=== PATIENT | female | born 1980 | race Two or more races ===

== ENCOUNTER 2018-11-24 08:19 | Emergency (ER) | payer OTHER ==
--- NOTE | 2018-11-24 08:55 | EDPHY ---
H & P Stated Complaint: RIGHT LOWER DENTAL PAIN STARTED WEDNESDAY, SEEN AT DENTIST ON WEDNESDAY Time Seen by Provider: 11/24/18 08:33 HPI/ROS: 38 yo F presents c/o severe pain in right lower molar, #30. The pain began on Wednesday night and she was seen on Wednesday, started on antibiotics and scheduled for a root canal next week. She continues to have severe pain, no drainage around tooth, no fever or chills. She contacted the pharmacy technician assistant again today who advised her to change antibioitcs to Clindamycin from penicillin. Review of systems As per HPI General no fever no chills no weakness HEENT no eye pain no eye discharge. No eye redness, no sore throat Respiratory no cough, no shortness of breath Cardiac no chest pain, no peripheral edema GI no abdominal pain, no diarrhea, no constipation, no nausea, no vomiting no flank pain, no hematuria, no dysuria Musculoskeletal no myalgias, no joint pain Heme no easy bruising, no easy bleeding Endo no polyuria, no polydipsia Skin no rashes, no pruritus Neuro no syncope, no dizziness, no headaches Psych is no suicidal ideation, no homicidal ideation Source: Patient Exam Limitations: No limitations - Personal History LMP (Females 10-55): Irregular Current Tetanus/Diphtheria Vaccine: Yes - Medical/Surgical History Hx Asthma: No Hx Chronic Respiratory Disease: No Hx Diabetes: No Hx Cardiac Disease: No Hx Renal Disease: No Hx Cirrhosis: No Hx Alcoholism: No Hx HIV/AIDS: No Hx Splenectomy or Spleen Trauma: No Other PMH: DENIES - Family History Significant Family History: No pertinent family hx - Social History Smoking Status: Never smoked Alcohol Use: None Drug Use: None - Physical Exam Exam: 38 yo F alert and oriented with severe dental pain, afebrile hypertensive and tachycardic at,nc no gross facial asymmetry op no tongue elevation no gum swelling or purulent dishcarge tooth #30, right lower first molar, tender to tap right mandibular tenderness, no gross swelling or areas of fluctuance neck supple, no adenopathy lungs cta bilat heart rapid rr ext no cce Constitutional: Initial Vital Signs Temperature (C) 36.5 C 11/24/18 08:25 Heart Rate 100 11/24/18 08:25 Respiratory Rate 18 11/24/18 08:25 Blood Pressure 170/102 H 11/24/18 08:25 O2 Sat (%) 97 11/24/18 08:25 O2 Delivery Mode Room Air Allergies/Adverse Reactions: No Known Allergies Allergy (Unverified 11/24/18 08:24) Home Medications: Medication Instructions Recorded PENICILLIN V POTASSIUM 11/24/18 Percocet 5/325 (*) 11/24/18 Medical Decision Making ED Course/Re-evaluation: pt seen and evaluated for intractable dental pain referred here by her pharmacy technician assistant IV established, given iv fluids normal saline Clindamycin 900 mg ivpb given Morphine, ondansetron given initially with slight pain relief next given toradol 30 mg ivp , increased pain relief and the hydromorphone 1 mg with complete pain relief Pt now tolerating po Imp Periapical abscess Plan See pharmacy technician assistant this afternoon for possible abscess drainage or root canal. Return as needed Pt has clindamycin and percocet rx already. Home with ondansetron. Differential Diagnosis: Differential diagnosis considered but not limited to: Periapical abscess, other dental abscess, gum abscess - Data Points Medications Given: Discontinued Medications Hydromorphone HCl (Dilaudid) 1 mg IVP EDNOW ONE Stop: 11/24/18 09:50 Last Admin: 11/24/18 09:56 Dose: 1 mg Sodium Chloride (Ns) 1,000 mls @ 0 mls/hr IV ONCE ONE PRN Reason: Wide Open Stop: 11/24/18 09:01 Last Admin: 11/24/18 09:05 Dose: 1,000 mls Clindamycin Phosphate/Dextrose (Cleocin 900 Mg (Premix)) 50 mls @ 100 mls/hr IV EDNOW ONE PRN Reason: Protocol Stop: 11/24/18 09:30 Last Admin: 11/24/18 09:12 Dose: 50 mls Ketorolac Tromethamine (Toradol) 30 mg IVP EDNOW ONE Stop: 11/24/18 09:18 Last Admin: 11/24/18 09:23 Dose: 30 mg Morphine Sulfate (Morphine) 4 mg IVP EDNOW ONE Stop: 11/24/18 09:01 Last Admin: 11/24/18 09:07 Dose: 4 mg Ondansetron HCl (Zofran) 4 mg IVP EDNOW ONE Stop: 11/24/18 09:01 Last Admin: 11/24/18 09:06 Dose: 4 mg Departure - Departure Disposition: Home, Routine, Self-Care Clinical Impression: Dental abscess Condition: Good Instructions: Ondansetron (By mouth), Dental Abscess (ED) Additional Instructions: Keep 4pm appointment with the pharmacy technician assistant today. Referrals: NONE *PRIMARY CARE P,. [Primary Care Provider] - As per Instructions
[2018-11-24] MEDS ORDERED: NS 1,000 ML IV ONE (09:00)
[2018-11-24] MEDS ORDERED: ONDANSETRON 4 MG/2 ML VIAL IVP ONE (09:00)
[2018-11-24] MEDS ORDERED: CLINDAMYCIN 900 MG/DEXTROSE 50 ML IV ONE (09:01)
[2018-11-24] MEDS ORDERED: KETOROLAC 30 MG/1 ML SDV IVP ONE (09:17)
[2018-11-24] MEDS ORDERED: HYDROmorphONE/DILAUDID 2 MG/ML INJ IVP ONE (09:49)
[2018-11-24] MEDS ORDERED: ONDANSETRON 4MG PREPACK#2 BTL TAKEHOME ONE (10:24)
[2018-11-24 12:13] VITALS: BP 128/79
== END 2018-11-24 10:40 | disposition home or self-care (01) ==
LOC: CED 08:19
DX: K04.7 Periapical abscess without sinus (principal)
CPT/HCPCS: 96365; 96375-ER; 96376-ER; 99284-ER; J1170; J1885; J2270; J2405